=== PATIENT | female | born 1970 | race Caucasian/White ===

== ENCOUNTER 2024-07-13 10:05 | Day surgery (SDC) | payer OTHER ==
[~2024-07-13] VITALS: Ht 162.6 cm; Wt 71.2 kg
[2024-07-13] MEDS ORDERED: LIDOCAINE 2% 100 MG/5 ML UJET TP ONE ×2 (11:47→13:10)
[2024-07-13] MEDS ORDERED: fentaNYL citrate 0.05 MG/ML VIAL ONE (11:47)
[2024-07-13] MEDS ORDERED: MIDAZOLAM 5 MG/5 ML VIAL ONE (11:47)
[2024-07-13] MEDS: MIDAZOLAM 2 MG/2 ML VIAL IVP ONE (12:17)
[2024-07-13] MEDS: fentaNYL citrate 0.05 MG/ML VIAL IVP ONE (12:18)
== END 2024-07-13 15:05 | disposition home or self-care (01) ==
LOC: MDS 10:05 → MMU 10:06 → MDS 15:05
PROVIDERS: ATTEND Internal Medicine Gastroenterology
DX: Z12.11 Encounter for screening for malignant neoplasm of colon (principal); K21.9 Gastro-esophageal reflux disease without esophagitis; I10 Essential (primary) hypertension; J45.909 Unspecified asthma, uncomplicated
CPT/HCPCS: 43235; 45378; J2250; J3010